=== PATIENT | female | born 1990 | race Caucasian/White ===

== ENCOUNTER 2019-02-06 14:50 | Outpatient (CLI) | payer OTHER ==
--- NOTE | 2019-02-06 15:09 | RAD ---
EXAM: Chest 2 views: HISTORY: Cough for 3 weeks COMPARISON: None. FINDINGS: There is a normal-sized cardiomediastinal silhouette. There is no evidence of consolidation, mass, or pleural effusion. The bones are unremarkable. IMPRESSION: No evidence of acute cardiopulmonary disease
== END 2019-02-06 14:51 | disposition home or self-care (01) ==
LOC: MADRAD 14:50
PROVIDERS: ATTEND Family Medicine
DX: R05 Cough (principal)
CPT/HCPCS: 71046